=== PATIENT | female | born 1930 | race Caucasian/White ===

== ENCOUNTER 2017-12-08 16:05 | Emergency (ER) | payer OTHER, BC ==
[~2017-12-08] VITALS: Ht 165.1 cm; Wt 62.6 kg
[2017-12-08 16:15] VITALS: Ht 165.1 cm; Wt 62.6 kg
[2017-12-08 18:28] VITALS: BP 159/74
== END 2017-12-08 18:28 | disposition home or self-care (01) ==
LOC: ED 16:05
DX: G56.01 Carpal tunnel syndrome, right upper limb (principal); I10 Essential (primary) hypertension; I48.91 Unspecified atrial fibrillation
CPT/HCPCS: Q0092